=== PATIENT | male | born 1945 | race Caucasian/White ===

== ENCOUNTER 2020-01-03 10:48 | Outpatient (CLI) | payer MEDICARE, BC ==
[~2020-01-03 10:48] MED LIST: Iopamidol-370 76% 500 ML 1 ML ONE
--- NOTE | 2020-01-03 15:18 | CT ---
CT OF THE CHEST, ABDOMEN AND PELVIS WITH IV CONTRAST: 01/03/20 INDICATION: 74-year-old male with history of rectal bleeding and rectal cancer with history of colonoscopy indica ting presence of rectal cancer. COMPARISON: None. FINDINGS: CHEST: There is mild bilateral male gynecomastia. No suspicious pulmonary nodule is demonstrated. No pleural effusion is noted. There are postsurgical changes of a prior CABG. No enlarged lymph nodes are evide nt within the mediastinum, hilar or axillary regions. ABDOMEN: No suspicious hepatic lesion is evident. The pancreas, adrenal glands and spleen are normal appearing . The kidneys reveal no focal renal lesion. There are moderate calcifications involving the abdominal aorta. No pathologically enlarged lymph nod es are seen within the retroperitoneum or upper abdomen. No free fluid is identified. PELVIS: There is a circumferential region of wall thickening involving the mid rectum on image 114, series 2 which may correspond to the patient's known rectal cancer. There is a mildly prominent left perirecta l lymph node measuring 7 mm on image 110 of series 2. There is a 7 mm lymph node seen along the infer ior rectal vasculature on image 108 of series 2. There is a mildly prominent 6 mm lymph node seen cassandra ng the inferior mesenteric vasculature on image 105 of series 2. An additional mildly prominent lymph node is seen just anterior to the left psoas and left inferior mesenteric vessels measuring 7 mm on image 97 of series 2. No free fluid is evident. There are moderate calcifications involving the abdominopelvic vasculature. The bladder is within normal limits. There are bilateral fat containing inguinal hernias. There are scattered degenerative and osteoarthritic change. IMPRESSION: 1. Circumferential mass involving the mid rectum with mildly prominent left perirectal and infer ior rectal lymph nodes suspicious for lymph node spread of disease. 2. No evidence of distant metastatic disease to the chest and abdomen. 3. Other findings as above. POS:
== END 2020-01-03 10:49 | disposition home or self-care (01) ==
LOC: BICCT 10:48
PROVIDERS: ATTEND Internal Medicine Gastroenterology
DX: C20 Malignant neoplasm of rectum (principal); K62.89 Other specified diseases of anus and rectum; N62 Hypertrophy of breast; I70.0 Atherosclerosis of aorta; M19.90 Unspecified osteoarthritis, unspecified site; K40.20 Bilateral inguinal hernia, without obstruction or gangrene, not specified as recurrent; Z95.1 Presence of aortocoronary bypass graft
CPT/HCPCS: 71260; 74177; Q9967

== ENCOUNTER 2020-04-16 07:46 | Outpatient (CLI) | payer MEDICARE, BC, OTHER ==
[2020-04-16 14:30] LABS: #Eosinphils 1.2 thou/uL (0.0-0.7); #Lymphocytes 0.8 thou/uL (1.20-3.40); #Monocytes 0.7 thou/uL (0.11-0.59); %Basophils 0.4 % (0.0-1.0); %Eosinophils 15.3 % (0.0-10.0); %Monocytes 8.8 % (0.0-10.0); %Neutrophils 65.5 % (42.0-75.0); Hemoglobin 13.2 g/dL (14.0-18.0); Mean Corpuscular HGB CONC 32.8 g/dL (32.0-36.0); Mean Corpuscular Hemoglobin 32.1 pg (27.0-31.0); Mean Corpuscular Volume 97.8 fL (78.0-98.0); Mean Platelet Volume 7.3 fL (7.4-10.4); Platelet Count 272 thou/uL (130-400); RBC Distribution Width 16.8 % (11.5-14.5); Red Blood Cell (RBC) Count 4.13 mill/uL (4.70-6.10); White Blood Cell (WBC) Count 7.6 thou/uL (4.8-10.8)
[2020-04-16 14:44] LABS: Hemoglobin A1c 5.8 % (4.0-6.0)
[2020-04-16 14:59] LABS: Anion Gap 14 mmol/L (10-20); BUN (Urea Nitrogen) 39 mg/dL (8.4-25.7); Calc. Creatinine Clearance 0 mL/min (70-130); Calcium 9.4 mg/dL (7.8-10.44); Carbon Dioxide 22 mmol/L (23-31); Chloride 99 mmol/L (98-107); Estimated GFR-MDRD 64; Glucose 105 mg/dL (83-110); Potassium 4.2 mmol/L (3.5-5.1); Sodium 131 mmol/L (136-145)
[2020-04-17 13:43] LABS: SARS-CoV-2 MS2 Positive; SARS-CoV-2 N Gene Negative; SARS-CoV-2 S Gene Negative; SARS-CoV-2 by NAA Not Detected (NotDetected); SARS-CoV-2 orf1ab Negative
== END 2020-04-16 07:47 | disposition home or self-care (01) ==
LOC: LABBT 07:46
PROVIDERS: ATTEND Specialist
DX: Z01.818 Encounter for other preprocedural examination (principal); C20 Malignant neoplasm of rectum; Z20.828 Contact with and (suspected) exposure to other viral communicable diseases
CPT/HCPCS: 80048; 83036; 85025; 93005; U0003; 87635; 93010

== ENCOUNTER 2020-04-21 06:30 | Inpatient (IN) | payer MEDICARE, BC ==
[2020-04-16 09:41] VITALS: BMI 33.2
[2020-04-21] MEDS ORDERED: Fentanyl 100 MCG/2 ML VIAL ONE ×2 (06:39→07:15)
[2020-04-21] MEDS ORDERED: Midazolam HCl 2 mg/2 ml Vial ONE (06:39)
[2020-04-21] MEDS ORDERED: Lidocaine 1% w/Epinephrine 1:100K 20 ML VIAL ONE (06:54)
[2020-04-21] MEDS ORDERED: Gabapentin 300 MG CAP ONE (07:14)
[2020-04-21] MEDS ORDERED: Acetaminophen 500 MG TAB ONE (07:14)
[2020-04-21] MEDS ORDERED: Ketorolac Tromethamine 30 MG/ML VIAL ONE (07:14)
[2020-04-21] MEDS ORDERED: cefOXitin 2 GM in Sodium Chloride 0.9% 100 ML IVPB SCH (07:30)
[2020-04-21] MEDS ORDERED: cefOXitin Sodium/Dextrose,Iso 2 GM in Premix Bag 1 BAG IVPB SCH (07:45)
[2020-04-21] MEDS ORDERED: Dexamethasone 20 MG/5 ML VIAL ONE (10:00)
[2020-04-21] MEDS ORDERED: Ondansetron PF 4 MG/2 ML Vial ONE (10:00)
[2020-04-21] MEDS ORDERED: Glycopyrrolate 0.2 MG/ML 5 ML SYRINGE ONE (10:00)
[2020-04-21] MEDS ORDERED: Rocuronium Bromide 10 MG/ML (10ML VIAL) ONE (10:00)
[2020-04-21] MEDS ORDERED: EPHEDRINE 25 MG/5 ML SYRINGE ONE (10:00)
[2020-04-21] MEDS ORDERED: PHENYLEPHRINE-NS 100 MCG/ML 10 ML SYRINGE ONE (10:00)
[2020-04-21] MEDS ORDERED: Bupivacaine HCl 0.5%/Epinephrine 1:200,000/PF 30 ml Vial ONE (10:00)
[2020-04-21] MEDS ORDERED: Lidocaine 1% PF 5 ML VIAL ONE (10:00)
[2020-04-21] MEDS ORDERED: PROPOFOL 200 MG/20 ML VIAL ONE (10:00)
[2020-04-21] MEDS ORDERED: cefOXitin Sodium/Dextrose 2 GM/50 ML BAG ONE (10:30)
[2020-04-21] MEDS ORDERED: Promethazine HCl 25 MG/ML VIAL IM PRN ×2 (12:56→13:21)
[2020-04-21] MEDS ORDERED: Promethazine HCl 25 MG/ML VIAL SLOW IVP PRN (12:56)
[2020-04-21] MEDS ORDERED: Ondansetron HCl/PF 4 MG/2 ML Vial IVP PRN (12:56)
[2020-04-21] MEDS ORDERED: Ondansetron PF 4 MG/2 ML Vial IVP PRN (13:21)
[2020-04-21] MEDS ORDERED: hydrALAZINE 20 MG/ML VIAL SLOW IVP PRN (13:21)
[2020-04-21] MEDS ORDERED: Insulin Regular 300 UNITS/3 ML VIAL SC PRN (13:21)
[2020-04-21] MEDS ORDERED: Morphine 4 MG/ML VIAL SLOW IVP PRN (13:21)
[2020-04-21] MEDS ORDERED: Morphine 2 MG/ML VIAL SLOW IVP PRN (13:21)
[2020-04-21] MEDS: Atenolol 25 MG TAB PO SCH (15:27)
[2020-04-21] MEDS: Aspirin 81 mg Enteric Coated Tablet PO SCH (15:27)
[2020-04-21] MEDS: Triamterene/Hydrochlorothiazide 37.5 mg/25 mg Tablet PO SCH (15:28)
[2020-04-21] MEDS: FLUoxetine HCl 20 MG CAP PO SCH (21:10)
[2020-04-21] MEDS: Amitriptyline HCl 25 MG TAB PO SCH (21:10)
[2020-04-21] MEDS: Allopurinol 100 MG TAB PO SCH (21:10)
[2020-04-21] MEDS: Rosuvastatin 20 MG TAB PO SCH (21:10)
[2020-04-21] MEDS: Famotidine 20 MG TAB PO SCH (21:10)
[2020-04-21] MEDS: rOPINIRole HCl 0.5 MG TAB PO SCH (21:10)
[2020-04-21] MEDS: Enoxaparin Sodium 40 MG/0.4 ML SYRINGE SC SCH (21:10)
[2020-04-21] MEDS: metFORMIN 500 MG TAB PO SCH (21:10)
[2020-04-21] MEDS: Famotidine/PF 20 mg/2ml Vial SLOW IVP SCH (21:11)
[2020-04-21] MEDS: Sodium Chloride 0.9% 1,000 ML IV SCH ×2 (21:15→21:21)
[2020-04-21] MEDS: Ketorolac Tromethamine 30 MG/ML VIAL IVP SCH ×2 (21:18→23:08)
[2020-04-22] MEDS: Sodium Chloride 0.9% 1,000 ML IV SCH ×5 (05:58→23:58)
[2020-04-22] MEDS: Ketorolac Tromethamine 30 MG/ML VIAL IVP SCH ×4 (05:58→23:55)
[2020-04-22 06:33] LABS: Anion Gap 15 mmol/L (10-20); BUN (Urea Nitrogen) 21 mg/dL (8.4-25.7); Calc. Creatinine Clearance 107 mL/min (70-130); Calcium 8.2 mg/dL (7.8-10.44); Carbon Dioxide 17 mmol/L (23-31); Chloride 104 mmol/L (98-107); Estimated GFR-MDRD 78; Glucose 149 mg/dL (83-110); Potassium 4.9 mmol/L (3.5-5.1); Sodium 131 mmol/L (136-145)
--- NOTE | 2020-04-22 06:48 | PDOC.GSPN ---
Surgery Progress Note: Subj - Subjective Narrative: Mr. Pascual is a 74 year old male with a PMH of HTN and Type 2 diabetes who is POD #1 from lap low anterior colon resection for adenocarcinoma of the rectum. Patient did well overnight, with no new complaints. He denies any fever, chest pain, SOB, nausea, or vomiting. He reports 5/10 abdominal tenderness. The patient notes he has been able to stand, but has not been walking around much. The patient is tolerating a clear liquid diet. I/O: 1550 mL/1400 from Carpenter, 150 mL from ileostomy. His POC glucose levels have been elevated (175-200 overnight), 143 this morning. He received a dose of Metformin yesterday. Patient notes his glucose levels usually run around 120 at home. Surgery Progress Note: Obj - Vital signs Vital signs: Vital Signs - Most Recent Temp Pulse Resp BP Pulse Ox 98.6 F 72 17 146/65 H 98 04/22/20 04:24 04/22/20 04:24 04/22/20 04:24 04/22/20 04:24 04/22/20 04:24 - Physical Exam General: no distress Cardiovascular: regular rate and rhythm Respiratory: clear to auscultation, normal respiratory effort Abdomen: soft, nondistended, positive bowel sounds, appropriately tender ( patient reports pain level 5/10) Wound: ostomy/colostomy (Ileostomy intact, mucosa pink, 150 mL enteric output overnight) Surgery Progress Note: Results - Labs Result Diagrams: 04/23/20 05:13 04/23/20 05:13 Lab results: Laboratory Results - last 24 hr 04/21/20 04/22/20 04/22/20 21:03 05:45 06:01 Sodium 131 L Potassium 4.9 Chloride 104 Carbon Dioxide 17 L Anion Gap 15 BUN 21 Creatinine 0.95 Estimated GFR (MDRD) 78 Glucose 149 H POC Glucose 182 H 143 H Calcium 8.2 Surgery Progress Note: A/P - Problem (1) Rectal cancer Current Visit: Yes Code(s): C20 - MALIGNANT NEOPLASM OF RECTUM Status: Acute (2) Type 2 diabetes mellitus Current Visit: Yes Status: Chronic - Plan Plan: Mr. Pascual is a 74 year old male with HTN and type 2 diabetes who is s/p LAR with temporary diverting ileostomy for rectal cancer. He is doing well with no complaints. Plan: 1. Continue pain management as needed 2. Advance to full liquid diet as tolerated 3. VTE: SCDs, encourage ambulation 4. POC glucose testing at bedside, sliding scale Humulin ordered as needed for glucose >150 5. Strict I/Os. 6. Patient appears stable, consider discharge if no new complaints MD note: Pt doing well. contin diet. prob home tomorrow.
[2020-04-22] MEDS: Famotidine/PF 20 mg/2ml Vial SLOW IVP SCH ×2 (08:34→21:42)
[2020-04-22] MEDS: Triamterene/Hydrochlorothiazide 37.5 mg/25 mg Tablet PO SCH (08:34)
[2020-04-22] MEDS: Losartan 25 MG TAB PO SCH (08:34)
[2020-04-22] MEDS: metFORMIN 500 MG TAB PO SCH ×2 (08:34→17:39)
[2020-04-22] MEDS: Amlodipine 10 MG TAB PO SCH (08:35)
[2020-04-22] MEDS: Aspirin 81 mg Enteric Coated Tablet PO SCH (08:35)
[2020-04-22] MEDS: Potassium Chloride 10 MEQ TAB PO SCH (08:35)
[2020-04-22] MEDS: Atenolol 25 MG TAB PO SCH (08:35)
[2020-04-22] MEDS: Famotidine 20 MG TAB PO SCH ×2 (08:36→21:42)
[2020-04-22 08:39] LABS: #Lymphocytes 0.4 thou/uL (1.20-3.40); #Monocytes 0.8 thou/uL (0.11-0.59); #Neutrophils 8.6 thou/uL (1.40-6.50); %Eosinophils 0.2 % (0.0-10.0); %Lymphocytes 4.3 % (21.0-51.0); %Monocytes 7.7 % (0.0-10.0); %Neutrophils 87.8 % (42.0-75.0); Hemoglobin 10.6 g/dL (14.0-18.0); Mean Corpuscular HGB CONC 32.1 g/dL (32.0-36.0); Mean Corpuscular Hemoglobin 31.8 pg (27.0-31.0); Mean Corpuscular Volume 99.1 fL (78.0-98.0); Mean Platelet Volume 6.9 fL (7.4-10.4); Platelet Count 217 thou/uL (130-400); RBC Distribution Width 16.3 % (11.5-14.5); Red Blood Cell (RBC) Count 3.32 mill/uL (4.70-6.10); White Blood Cell (WBC) Count 9.8 thou/uL (4.8-10.8)
[2020-04-22] MEDS ORDERED: HYDROcodone/Acetaminophen 7.5/325 mg Tablet PO PRN (08:49)
[2020-04-22] MEDS: HYDROcodone/Acetaminophen 7.5/325 mg Tablet PO PRN (19:14)
[2020-04-22] MEDS: Enoxaparin Sodium 40 MG/0.4 ML SYRINGE SC SCH (21:42)
[2020-04-22] MEDS: FLUoxetine HCl 20 MG CAP PO SCH (21:42)
[2020-04-22] MEDS: rOPINIRole HCl 0.5 MG TAB PO SCH (21:42)
[2020-04-22] MEDS: Rosuvastatin 20 MG TAB PO SCH (21:42)
[2020-04-22] MEDS: Allopurinol 100 MG TAB PO SCH (21:42)
[2020-04-22] MEDS: Amitriptyline HCl 25 MG TAB PO SCH (21:42)
--- NOTE | 2020-04-23 02:46 | OP ---
DATE OF PROCEDURE: 04/21/2020 PREOPERATIVE DIAGNOSIS: Distal rectal cancer. POSTOPERATIVE DIAGNOSIS: Distal rectal cancer. PROCEDURE PERFORMED: Ultra-low anterior resection of rectal cancer with proximal diverting ileostomy. ANESTHESIA: General endotracheal. INDICATIONS FOR PROCEDURE: The patient is a 74-year-old white male. He was diagnosed with a rectal cancer. He has completed a course of neoadjuvant chemotherapy and radiation. He presents at this time for definitive resection. The patient's cancer is felt to be somewhere between 4 and 8 cm from the anal verge. The patient was significantly obese at the onset of his care and at my request, he has lost over 20 pounds in preparation for his surgery to help make an adequately low resection possible. He has undergone outpatient mechanical and antibiotic bowel prep. DESCRIPTION OF OPERATION: Informed consent was obtained. The patient was taken to the operating room, where general endotracheal anesthesia was obtained with the patient in the supine position. The patient had a TAP block placed by Anesthesia preoperatively. He was placed into dorsal lithotomy using Yellofin stirrups. Carpenter catheter was placed, abdomen was prepped with ChloraPrep and draped in sterile fashion. Local anesthetic was infiltrated, and 5-mm supraumbilical incision was created through which a Veress needle was passed into the peritoneal cavity and pneumoperitoneum was established using carbon dioxide up to a pressure of 15 mmHg. A 5 mm trocar port was passed through the same incision, and laparoscopic camera was passed this port. Under direct vision, a 12-mm port was placed in the right lower quadrant at the site of a planned ileostomy. A site was selected for the colon extraction port. An 8 cm left lower quadrant oblique incision was created, and muscle-splitting technique was used to gain access into the abdominal cavity. The Gurinder wound retractor followed by the Kristi was placed. Attention was turned to the colon. With the patient in significant Trendelenburg position, the lateral attachments of the sigmoid colon were mobilized with LigaSure. The white line of Toldt was taken down in an ascending fashion towards, but not including the splenic flexure. Attention was returned to the lower abdomen. I began my dissection on the right side of the rectum. Peritoneum was incised, and peritoneal incision was carried down to the cul-de-sac of the peritoneal reflection. There was a sulcus into which the rectum dive down into the lower pelvis. The peritoneum was incised over the anterior aspect of this. Attention was returned proximally, and dissection was carried through the mesentery to the left side of the rectum in the postmesenteric plane so as to affect total mesorectal excision. I was able to identify the left ureter and reflected it posteriorly. It was kept free from harm throughout the case. The rectal mobilization was carefully carried into the depths of the pelvis and through the retroperitoneum down just about . This was a lengthy dissection due to the fairly narrow pelvis. Meticulous hemostasis was maintained. At the point that I felt that I had mobilized the rectum far enough, I performed a rectal examination while checking the colon from within the abdomen and was able to palpate the malignancy digitally and discern that I had in fact dissected beyond the rectal malignancy to a point that the rectum could be safely divided. The Cadott stapler using a 60 mm load was used to divide the rectum beyond the palpable area of malignancy. Because of the difficult angle within the depth of the pelvis, this required 4 fires of the stapler to get a complete transection. When it was completely divided, the rectum was reflected back up into the abdominal cavity. I identified a segment of descending colon that would easily reach down into the pelvis for a tension-free anastomosis. This was marked with the LigaSure, and the colon was delivered extracorporeally through the wound retractor. The mesentery was cleared from the area that had been dissected previously up to the level of the planned anastomosis. This was carried out using the LigaSure device. The superior rectal artery was divided at the takeoff from the inferior mesenteric artery. Using segregated instruments, an enterotomy was created and the colon was sized. A 31 mm EEA stapler was selected, and the anvil of the stapler was advanced through the colotomy several centimeters proximally and brought out antimesenteric. The colotomy was then resected in continuity with the excised malignancy with a final firing of the Cadott stapler. The specimen was passed off the field as a specimen. Gloves were changed. Instruments were passed off the field and the operation was continued. The post was cleansed with Betadine, and a pursestring suture of 2-0 Prolene was placed. The colon was dropped back down to the abdominal cavity. From below, I used the EEA sizers to dilate the anus and then passed the 31 mm stapler through the anus up to the staple line. The spike was passed through the staple line and mated to the anvil. These two segments were approximated and anastomosed by firing the stapler. Again, this was entirely tension-free. The anastomosis was checked to make sure it was airtight by insufflating using the proctoscope. There was no evidence of air leak. The area was irrigated, and all irrigant was aspirated. The abdominal cavity was inspected one final time. The liver was inspected both visually and with palpation. It was found to be no evidence of metastatic disease to liver. The ileocecal valve was identified and at 30 cm proximally, the small bowel was grasped. Laparoscopy was terminated. The port site at the right lower quadrant was enlarged, and muscle-splitting was used in typical ileostomy creation. The graft segment of bowel was passed through the ileostomy opening, and a red rubber catheter was passed through a mesenteric defect to hold the bowel out of abdomen. The proximal end of the bowel was marked. All laparoscopic instrumentation was passed off the field. The abdominal wall was cleansed with saline. Gowns and gloves were changed in preparation for closure. The closing tray was utilized. Attention was turned to the left lower quadrant incision. The fascia was closed in 2 layers using running suture of #1 PDS. Additional local anesthetic was infiltrated in the interfascial plane, and the subcutaneous layer was irrigated with 2 L of saline. The remainder of the wound was closed with 3-0 and 4-0 Monocryl. The other laparoscopic port site was closed with 4-0 Monocryl and Dermabond was placed externally. Attention was then returned to the ileostomy. The ileum was opened transversely. The proximal end was matured with eversion sutures followed by full-thickness sutures, and the distal aspect was matured without eversion. The red rubber catheter was trimmed to appropriate length and secured to skin with 3-0 nylon suture. The ileostomy appliance was applied in the usual fashion. There were no complications. Blood loss was estimated about 50 mL. The patient tolerated the procedure well and was taken to recovery room in stable condition. Job ID: [id number] [facility]
[2020-04-23] MEDS: Ketorolac Tromethamine 30 MG/ML VIAL IVP SCH ×2 (05:10→11:58)
[2020-04-23 05:21] LABS: #Eosinphils 0.3 thou/uL (0.0-0.7); #Lymphocytes 0.5 thou/uL (1.20-3.40); #Monocytes 0.6 thou/uL (0.11-0.59); #Neutrophils 4.8 thou/uL (1.40-6.50); %Basophils 0.1 % (0.0-1.0); %Eosinophils 5.3 % (0.0-10.0); %Lymphocytes 8.2 % (21.0-51.0); %Monocytes 10.2 % (0.0-10.0); %Neutrophils 76.2 % (42.0-75.0); Hemoglobin 10.2 g/dL (14.0-18.0); Mean Corpuscular HGB CONC 32.4 g/dL (32.0-36.0); Mean Corpuscular Hemoglobin 32.2 pg (27.0-31.0); Mean Corpuscular Volume 99.4 fL (78.0-98.0); Mean Platelet Volume 6.5 fL (7.4-10.4); Platelet Count 189 thou/uL (130-400); RBC Distribution Width 16.3 % (11.5-14.5); Red Blood Cell (RBC) Count 3.17 mill/uL (4.70-6.10); White Blood Cell (WBC) Count 6.3 thou/uL (4.8-10.8)
[2020-04-23 05:41] LABS: Anion Gap 9 mmol/L (10-20); BUN (Urea Nitrogen) 20 mg/dL (8.4-25.7); Calc. Creatinine Clearance 108 mL/min (70-130); Calcium 8.2 mg/dL (7.8-10.44); Carbon Dioxide 23 mmol/L (23-31); Chloride 103 mmol/L (98-107); Estimated GFR-MDRD 79; Glucose 99 mg/dL (83-110); Potassium 4.4 mmol/L (3.5-5.1); Sodium 131 mmol/L (136-145)
[2020-04-23] MEDS: Sodium Chloride 0.9% 1,000 ML IV SCH (06:16)
--- NOTE | 2020-04-23 06:24 | PDOC.GSPN ---
Surgery Progress Note: Subj - Subjective Narrative: Mr. Pascual is a 74-year-old male with a history of HTN and T2DM and POD #2 after low anterior resection of rectal cancer with proximal diverting colostomy. He reports feeling well with no overnight events. Associated symptoms include a minor cough since yesterday. His pain is appropriately controlled with Toradol 15mg last given @ 05:10 and he feels taken care of. He is tolerating full liquid diet. No BM per rectum, no flatus and belching. I/O at 600 IV NS/200 urine + 725 stool this morning (per colostomy). He was able to ambulate yesterday and earlier this morning. Carpenter catheter was removed yesterday and patient is able to urinate. Denies nausea, vomiting, fever, SOB. Surgery Progress Note: Obj - Vital signs Vital signs: Vital Signs - Most Recent Temp Pulse Resp BP Pulse Ox 97.7 F 72 17 145/65 H 96 04/23/20 03:54 04/23/20 03:54 04/23/20 03:54 04/23/20 03:54 04/23/20 03:54 - Physical Exam General: no distress (laying recumbent, says it's the best position to prevent pain and pressure at surgical site.) Cardiovascular: regular rate and rhythm Respiratory: clear to auscultation Abdomen: soft, non tender, nondistended, positive bowel sounds (in all 4 quadrants) Wound: healing well (incision sites are intact; no erythema, swelling or drainage.) Surgery Progress Note: Results - Labs Result Diagrams: 04/23/20 05:13 04/23/20 05:13 Lab results: Laboratory Results - last 24 hr 04/22/20 04/23/20 04/23/20 20:41 05:13 05:13 WBC 6.3 RBC 3.17 L Hgb 10.2 L Hct 31.5 L MCV 99.4 H MCH 32.2 H MCHC 32.4 RDW 16.3 H Plt Count 189 MPV 6.5 L Neutrophils % 76.2 H Lymphocytes % 8.2 L Monocytes % 10.2 H Eosinophils % 5.3 Basophils % 0.1 Neutrophils # 4.8 Lymphocytes # 0.5 L Monocytes # 0.6 H Eosinophils # 0.3 Basophils # 0.0 Sodium 131 L Potassium 4.4 Chloride 103 Carbon Dioxide 23 Anion Gap 9 L BUN 20 Creatinine 0.94 Estimated GFR (MDRD) 79 Glucose 99 POC Glucose 129 H Calcium 8.2 04/23/20 05:20 WBC RBC Hgb Hct MCV MCH MCHC RDW Plt Count MPV Neutrophils % Lymphocytes % Monocytes % Eosinophils % Basophils % Neutrophils # Lymphocytes # Monocytes # Eosinophils # Basophils # Sodium Potassium Chloride Carbon Dioxide Anion Gap BUN Creatinine Estimated GFR (MDRD) Glucose POC Glucose 118 H Calcium - Hgb/Hct trending downward from 10.6/32.9 22 hours ago to 10.2/31.5 this morning. - Hyponatremia noted at 131 - Elevated POC glucose at 118, trending down from day before with 129 @ bedtime & 24-hr max at 175 Surgery Progress Note: A/P - Problem (1) Rectal cancer Current Visit: Yes Code(s): C20 - MALIGNANT NEOPLASM OF RECTUM Status: Acute (2) Type 2 diabetes mellitus Current Visit: Yes Status: Chronic - Plan Plan: - patient is stable - tolerating full liquid, consider advancing to regular - continue to monitor POC glucose, responding to metformin tx, use sliding scale Humulin glucose > 150 - systolic HTN this morning @ 145/65, monitor BP - consider repeat CBC and CMP - pain is appropriately controlled with toradol 15 mg - SCDs not in use, continued ambulation strongly advised - consider d/c MD note: Doing well. stable after surgery. Home today after HHN arranged [facility]
[2020-04-23] MEDS: Losartan 25 MG TAB PO SCH (07:57)
[2020-04-23] MEDS: Aspirin 81 mg Enteric Coated Tablet PO SCH (07:57)
[2020-04-23] MEDS: Atenolol 25 MG TAB PO SCH (07:57)
[2020-04-23] MEDS: Amlodipine 10 MG TAB PO SCH (07:58)
[2020-04-23] MEDS: metFORMIN 500 MG TAB PO SCH (07:58)
[2020-04-23] MEDS: Potassium Chloride 10 MEQ TAB PO SCH (07:58)
[2020-04-23] MEDS: Triamterene/Hydrochlorothiazide 37.5 mg/25 mg Tablet PO SCH (07:59)
[2020-04-23] MEDS: Famotidine 20 MG TAB PO SCH (07:59)
[2020-04-23] MEDS: Famotidine/PF 20 mg/2ml Vial SLOW IVP SCH (10:10)
[2020-04-23] MEDS: HYDROcodone/Acetaminophen 7.5/325 mg Tablet PO PRN (11:57)
[2020-04-23 16:19] VITALS: BP 132/67; TEMP 97.8
--- NOTE | 2020-04-24 09:34 | PDOC.FMACP ---
Advance Care Planning - Problem (1) Palliative care encounter Status: Acute Code(s): Z51.5 - ENCOUNTER FOR PALLIATIVE CARE (2) Rectal cancer Status: Acute Code(s): C20 - MALIGNANT NEOPLASM OF RECTUM - Note Participants: patient, palliative care Summary: Palliative Care addressed Advanced Care Planning, opportunity to decline. The diagnosis, prognosis and goals of care were discussed. Appropriate forms and documentation to accomplish the goals of care were discussed. All questions were answered. Mr Pascual elected to complete the MPOA, original and copies provided to patient as well as copy placed on the chart. He confirmed he has Directive to Physician completed and at home, requested for copies to be given to the hospital for his medical records so his wishes will be known. The Palliative Care Team will be engaged to assist with completion of any outstanding forms that are needed. Please also refer to Palliative Care notes in note section. Time Spent (mins): 15
== END 2020-04-23 16:20 | disposition home health service (06) | DRG 330 ==
LOC: SDC 06:30 → SURG A 13:21
PROVIDERS: ADMIT Specialist; ATTEND Specialist
PROC: 0DBP4ZZ Excision of Rectum, Percutaneous Endoscopic Approach (ICD-10-PCS; principal; 2020-04-21)
PROC: 0DBN4ZZ Excision of Sigmoid Colon, Percutaneous Endoscopic Approach (ICD-10-PCS; 2020-04-21)
PROC: 0D1B4Z4 Bypass Ileum to Cutaneous, Percutaneous Endoscopic Approach (ICD-10-PCS; 2020-04-21)
DX: C20 Malignant neoplasm of rectum (principal); E87.1 Hypo-osmolality and hyponatremia; G47.33 Obstructive sleep apnea (adult) (pediatric); I25.10 Atherosclerotic heart disease of native coronary artery without angina pectoris; E78.5 Hyperlipidemia, unspecified; I48.91 Unspecified atrial fibrillation; F32.9 Major depressive disorder, single episode, unspecified; I12.9 Hypertensive chronic kidney disease with stage 1 through stage 4 chronic kidney disease, or unspecified chronic kidney disease; E11.22 Type 2 diabetes mellitus with diabetic chronic kidney disease; G25.81 Restless legs syndrome; N18.3 Chronic kidney disease, stage 3 (moderate); M10.9 Gout, unspecified; Z96.653 Presence of artificial knee joint, bilateral; K21.9 Gastro-esophageal reflux disease without esophagitis; Z79.82 Long term (current) use of aspirin; Z95.1 Presence of aortocoronary bypass graft; Z87.891 Personal history of nicotine dependence; Z92.21 Personal history of antineoplastic chemotherapy; Z92.3 Personal history of irradiation
CPT/HCPCS: 36415; 36416; 80048; 85025; 88305; 88309; 88313; 88342; J0670; J0694; J1100; J1650; J1885; J2250; J2405; J2704; J3010; J3490

== ENCOUNTER 2020-05-14 07:30 | Outpatient (CLI) | payer MEDICARE, BC, OTHER ==
--- NOTE | 2020-05-14 12:27 | RAD ---
RADIOGRAPH CHEST 2 VIEWS: DATE: 05/14/2020 HISTORY: 74-year-old male for preoperative clearance FINDINGS: There is no airspace density, pulmonary edema, pleural effusion, pneumothorax, or cardiomegaly. There are sternotomy wires. There is a left atrial appendage closure device. IMPRESSION: No acute cardiopulmonary findings.
[2020-05-14 16:37] LABS: #Eosinphils 1.1 thou/uL (0.0-0.7); #Lymphocytes 0.9 thou/uL (1.20-3.40); #Monocytes 0.7 thou/uL (0.11-0.59); #Neutrophils 6.7 thou/uL (1.40-6.50); %Basophils 0.2 % (0.0-1.0); %Eosinophils 11.4 % (0.0-10.0); %Lymphocytes 9.4 % (21.0-51.0); Hemoglobin 12.3 g/dL (14.0-18.0); Mean Corpuscular Hemoglobin 32.6 pg (27.0-31.0); Mean Corpuscular Volume 98.8 fL (78.0-98.0); Mean Platelet Volume 6.9 fL (7.4-10.4); Platelet Count 331 thou/uL (130-400); RBC Distribution Width 14.8 % (11.5-14.5); Red Blood Cell (RBC) Count 3.78 mill/uL (4.70-6.10); White Blood Cell (WBC) Count 9.3 thou/uL (4.8-10.8)
[2020-05-14 17:01] LABS: Anion Gap 16 mmol/L (10-20); BUN (Urea Nitrogen) 50 mg/dL (8.4-25.7); Calc. Creatinine Clearance 0 mL/min (70-130); Carbon Dioxide 23 mmol/L (23-31); Chloride 100 mmol/L (98-107); Estimated GFR-MDRD 65; Glucose 107 mg/dL (83-110); Potassium 5.2 mmol/L (3.5-5.1); Sodium 134 mmol/L (136-145)
[2020-05-15 09:44] LABS: Hemoglobin A1c 6.4 % (4.0-6.0)
[2020-05-15 12:00] LABS: SARS-CoV-2 MS2 Positive; SARS-CoV-2 N Gene Negative; SARS-CoV-2 S Gene Negative; SARS-CoV-2 by NAA Not Detected (NotDetected); SARS-CoV-2 orf1ab Negative
--- NOTE | 2020-05-17 13:06 | EKG ---
Test Reason : Blood Pressure : / mmHG Vent. Rate : 059 BPM Atrial Rate : 059 BPM P-R Int : 290 ms QRS Dur : 154 ms QT Int : 446 ms P-R-T Axes : 065 -56 066 degrees QTc Int : 441 ms Sinus bradycardia with 1st degree A-V block Left axis deviation Right bundle branch block Abnormal ECG When compared with ECG of 16-APR-2020 11:22, No significant change was found Confirmed by DEEPA ROBERSON MD ([id number]) on 05/17/2020 1:05:49 PM Referred By: ADELAIDE Confirmed By:DEEPA ROBERSON MD
== END 2020-05-14 07:31 | disposition home or self-care (01) ==
LOC: LABBT 07:30 → SCSRAD 07:31
PROVIDERS: ATTEND Specialist
DX: Z01.818 Encounter for other preprocedural examination (principal); Z20.828 Contact with and (suspected) exposure to other viral communicable diseases; C20 Malignant neoplasm of rectum
CPT/HCPCS: 71046; 80048; 83036; 85025; 87635; 93005; 93010; U0003

== ENCOUNTER 2020-06-18 07:34 | Outpatient (CLI) | payer MEDICARE, BC, OTHER ==
[2020-06-18 14:53] LABS: #Eosinphils 0.3 10x3/uL (0.0-0.5); #Monocytes 0.7 10x3/uL (0.0-1.1); #Neutrophils 2.8 10x3/uL (1.5-8.4); %Basophils 0.6 % (0.0-2.0); %Lymphocytes 16.5 % (18.0-47.0); %Monocytes 15.6 % (0.0-10.0); %Neutrophils 59.9 % (40.0-75.0); Hemoglobin 10.2 g/dL (14.0-18.0); Mean Corpuscular HGB CONC 32.5 G/DL (32.0-36.0); Mean Corpuscular Hemoglobin 31.2 PG (27.0-33.0); Mean Platelet Volume 8.7 fl (7.4-10.4); Platelet Count 213 10x3/uL (130-400); RBC Distribution Width 13.4 % (11.5-14.5); Red Blood Cell (RBC) Count 3.27 10x6/uL (4.40-5.80); White Blood Cell (WBC) Count 4.7 10x3/uL (4.5-11.0)
[2020-06-18 16:47] LABS: Anion Gap 21 mmol/L (10-20); BUN (Urea Nitrogen) 36 mg/dL (8.4-25.7); Calc. Creatinine Clearance 0 mL/min (70-130); Calcium 9.4 mg/dL (7.8-10.44); Carbon Dioxide 16 mmol/L (23-31); Chloride 102 mmol/L (98-107); Estimated GFR-MDRD 67; Glucose 100 mg/dL (83-110); Potassium 4.5 mmol/L (3.5-5.1); Sodium 134 mmol/L (136-145)
--- NOTE | 2020-06-18 16:52 | RAD ---
XR Chest Pa Lat STANDARD HISTORY: Preoperative evaluation COMPARISON: 05/14/2020 FINDINGS: The heart size is normal. Changes of median sternotomy are again seen. Right-sided Port-A-C ath has been placed with tip in the projection of the SVC. The lungs are well expanded without focal areas of consolidation, pneumothorax or pleural effusions. There is degenerative change in the spine. IMPRESSION: No radiographic evidence of acute cardiopulmonary process.
[2020-06-19 11:54] LABS: SARS-CoV-2 MS2 Positive; SARS-CoV-2 N Gene Negative; SARS-CoV-2 S Gene Negative; SARS-CoV-2 by NAA Not Detected (NotDetected); SARS-CoV-2 orf1ab Negative
== END 2020-06-18 07:35 | disposition home or self-care (01) ==
LOC: LABBT 07:34
PROVIDERS: ATTEND Specialist
DX: Z01.818 Encounter for other preprocedural examination (principal); C20 Malignant neoplasm of rectum; Z20.828 Contact with and (suspected) exposure to other viral communicable diseases
CPT/HCPCS: 71046; 80048; 85025; 93005; U0003; 87635; 93010

== ENCOUNTER 2020-06-18 13:15 | Inpatient (IN) | payer MEDICARE, BC ==
[2020-06-23] MEDS ORDERED: Fentanyl 100 MCG/2 ML VIAL ONE ×5 (06:27→17:44)
[2020-06-23] MEDS ORDERED: Acetaminophen 500 MG TAB ONE (06:28)
[2020-06-23] MEDS ORDERED: Ketorolac Tromethamine 30 MG/ML VIAL ONE (06:28)
[2020-06-23] MEDS ORDERED: cefOXitin Sodium/Dextrose 2 GM/50 ML BAG ONE (06:28)
[2020-06-23] MEDS ORDERED: Midazolam HCl 2 mg/2 ml Vial ONE (10:47)
[2020-06-23] MEDS ORDERED: PROPOFOL 200 MG/20 ML VIAL ONE (13:05)
[2020-06-23] MEDS ORDERED: Bupivacaine HCl 0.5%/Epinephrine 1:200,000/PF 30 ml Vial ONE (13:05)
[2020-06-23] MEDS ORDERED: Lidocaine 1% PF 5 ML VIAL ONE (13:05)
[2020-06-23] MEDS ORDERED: Ondansetron PF 4 MG/2 ML Vial ONE (13:05)
[2020-06-23] MEDS ORDERED: Rocuronium Bromide 10 MG/ML (10ML VIAL) ONE (13:05)
[2020-06-23] MEDS ORDERED: Lidocaine 1% w/Epinephrine 1:100K 20 ML VIAL ONE (14:08)
[2020-06-23] MEDS ORDERED: Bupivacaine/Epinephrine 0.25% 30 ML VIAL ONE (14:08)
[2020-06-23] MEDS ORDERED: SUGAMMADEX SODIUM 200 MG/2 ML VIAL ONE (14:14)
[2020-06-23] MEDS ORDERED: Insulin Regular 300 UNITS/3 ML VIAL SC PRN (14:27)
[2020-06-23] MEDS ORDERED: Dextrose 5% in Water 1,000 ML IV PRN (14:27)
[2020-06-23] MEDS ORDERED: Dextrose 50% Abboject 50 ML SYRINGE SLOW IVP PRN (14:27)
[2020-06-23] MEDS ORDERED: HYDROmorphone 2 MG/ML VIAL SLOW IVP PRN (16:25)
[2020-06-23] MEDS ORDERED: Promethazine HCl 25 MG/ML VIAL IM PRN ×2 (16:25→18:57)
[2020-06-23] MEDS ORDERED: PACU-Morphine 4MG/ML VIAL SLOW IVP PRN (16:25)
[2020-06-23] MEDS ORDERED: Ketorolac Tromethamine 30 MG/ML VIAL IVP PRN (16:25)
[2020-06-23] MEDS ORDERED: Ondansetron HCl/PF 4 MG/2 ML Vial IVP PRN (16:25)
[2020-06-23] MEDS ORDERED: Morphine Sulfate 2 MG/ML SYRINGE SLOW IVP PRN (16:25)
[2020-06-23] MEDS ORDERED: Promethazine HCl 25 MG/ML VIAL SLOW IVP PRN (16:25)
[2020-06-23] MEDS ORDERED: Meperidine HCl/PF 25 MG/ML VIAL SLOW IVP PRN (16:25)
[2020-06-23] MEDS ORDERED: hydrALAZINE 20 MG/ML VIAL SLOW IVP PRN (18:57)
[2020-06-23] MEDS ORDERED: Morphine 4 MG/ML VIAL SLOW IVP PRN (18:57)
[2020-06-23] MEDS ORDERED: Ondansetron PF 4 MG/2 ML Vial IVP PRN (18:57)
[2020-06-23] MEDS ORDERED: Morphine 2 MG/ML VIAL SLOW IVP PRN (18:57)
[2020-06-23 19:50] VITALS: BMI 29.5
[2020-06-23] MEDS: HumaLOG 300 UNITS/3 ML VIAL SC SCH (20:59)
[2020-06-23] MEDS: Insulin Glargine 26 UNITS in Pre-Filled Syringe 1 EACH SC SCH (21:00)
[2020-06-23] MEDS ORDERED: Non-Formulary Item 1 EACH (Insulin Glargine,Hum.Rec.Anlog [Toujeo Max Solostar] 300 UNIT/ SQ SCH (21:00)
[2020-06-23] MEDS: FLUoxetine HCl 20 MG CAP PO SCH (21:06)
[2020-06-23] MEDS: Allopurinol 100 MG TAB PO SCH (21:06)
[2020-06-23] MEDS: Amitriptyline HCl 25 MG TAB PO SCH (21:06)
[2020-06-23] MEDS: Rosuvastatin 20 MG TAB PO SCH (21:06)
[2020-06-23] MEDS: Ketorolac Tromethamine 30 MG/ML VIAL IVP SCH (21:07)
[2020-06-23] MEDS: D5 1/2 NS w/20 mEq KCL 1,000 ML IV SCH (21:07)
[2020-06-23] MEDS: Famotidine/PF 20 mg/2ml Vial SLOW IVP SCH (21:08)
[2020-06-23] MEDS: rOPINIRole HCl 0.5 MG TAB PO SCH (21:08)
[2020-06-23] MEDS: Famotidine 20 MG TAB PO SCH (21:08)
[2020-06-23] MEDS: Enoxaparin Sodium 40 MG/0.4 ML SYRINGE SC SCH (21:08)
[2020-06-24] MEDS: Ketorolac Tromethamine 30 MG/ML VIAL IVP SCH ×4 (03:11→21:15)
[2020-06-24] MEDS: D5 1/2 NS w/20 mEq KCL 1,000 ML IV SCH ×2 (03:13→15:05)
[2020-06-24 05:54] LABS: #Lymphocytes 0.4 thou/uL (1.20-3.40); #Monocytes 0.7 thou/uL (0.11-0.59); #Neutrophils 5.2 thou/uL (1.40-6.50); %Eosinophils 0.6 % (0.0-10.0); %Lymphocytes 5.9 % (21.0-51.0); %Monocytes 10.5 % (0.0-10.0); Hemoglobin 10.6 g/dL (14.0-18.0); Mean Corpuscular Hemoglobin 32.3 pg (27.0-31.0); Mean Corpuscular Volume 94.9 fL (78.0-98.0); Mean Platelet Volume 6.3 fL (7.4-10.4); Platelet Count 161 thou/uL (130-400); RBC Distribution Width 13.6 % (11.5-14.5); Red Blood Cell (RBC) Count 3.28 mill/uL (4.70-6.10); White Blood Cell (WBC) Count 6.2 thou/uL (4.8-10.8)
[2020-06-24 06:21] LABS: Anion Gap 10 mmol/L (10-20); BUN (Urea Nitrogen) 19 mg/dL (8.4-25.7); Calc. Creatinine Clearance 106 mL/min (70-130); Calcium 8.8 mg/dL (7.8-10.44); Carbon Dioxide 24 mmol/L (23-31); Chloride 102 mmol/L (98-107); Estimated GFR-MDRD 80; Glucose 147 mg/dL (83-110); Potassium 4.4 mmol/L (3.5-5.1); Sodium 132 mmol/L (136-145)
[2020-06-24] MEDS: metFORMIN 500 MG TAB PO SCH ×2 (08:35→16:41)
[2020-06-24] MEDS: Atenolol 25 MG TAB PO SCH (08:35)
[2020-06-24] MEDS: Tamsulosin HCl 0.4 MG CAP PO SCH (08:35)
[2020-06-24] MEDS: Losartan 25 MG TAB PO SCH (08:35)
[2020-06-24] MEDS: Aspirin 81 mg Enteric Coated Tablet PO SCH (08:36)
[2020-06-24] MEDS: Famotidine 20 MG TAB PO SCH ×2 (08:36→21:15)
[2020-06-24] MEDS: Amlodipine 10 MG TAB PO SCH (08:36)
[2020-06-24] MEDS ORDERED: FLU VACC QS2020-21(65YR UP)/PF 240 MCG/0.7 ML SYRINGE IM ONE (09:00)
[2020-06-24] MEDS ORDERED: HYDROcodone/Acetaminophen 7.5/325 mg Tablet PO PRN ×2 (14:22)
[2020-06-24] MEDS: Famotidine/PF 20 mg/2ml Vial SLOW IVP SCH ×2 (15:00→21:17)
[2020-06-24] MEDS ORDERED: D5 1/2 NS w/20 mEq KCL 1,000 ML IV SCH (18:00)
[2020-06-24] MEDS: Rosuvastatin 20 MG TAB PO SCH (21:15)
[2020-06-24] MEDS: rOPINIRole HCl 0.5 MG TAB PO SCH (21:15)
[2020-06-24] MEDS: FLUoxetine HCl 20 MG CAP PO SCH (21:16)
[2020-06-24] MEDS: Allopurinol 100 MG TAB PO SCH (21:16)
[2020-06-24] MEDS: Amitriptyline HCl 25 MG TAB PO SCH (21:16)
[2020-06-24] MEDS: Enoxaparin Sodium 40 MG/0.4 ML SYRINGE SC SCH (21:17)
--- NOTE | 2020-06-24 21:22 | PRG ---
DATE OF SERVICE: SUBJECTIVE: Mr. Pascual is postoperative day #1 following ileostomy reversal. He was stable overnight and notes minimal discomfort. He does note some concern regarding intermittent low volume diarrhea that he has some difficult to control thus far. He is tolerating clear liquids yesterday and thus far today and had no nausea or vomiting. He is voiding well. PHYSICAL EXAMINATION: VITAL SIGNS: Temperature is 98.0, pulse 70, and blood pressure 111/64. LUNGS: Clear to auscultation. CARDIAC: Regular rate and rhythm. ABDOMEN: Soft, nontender, and nondistended. Dressing is intact in right lower quadrant. Bowel sounds are present and normoactive. LABORATORY DATA: CBC shows a white blood cell count of 6.2 with a hemoglobin of 10.6. Of note, his most recent hemoglobin on June 18 was 10.2. Chemistries; his electrolytes were unremarkable. His blood sugar has been well controlled overnight. ASSESSMENT: Patient is doing well following ileostomy closure. I will decrease his IV fluid rate down to 50 mL/h and advance him up to a full liquid diet today. I have encouraged him to continue to ambulate. I anticipate advancing into a soft diet and discharge him home tomorrow. I discussed all this with the patient. He is happy with his progress. Job ID: [id number]
[2020-06-24] MEDS: Insulin Glargine 26 UNITS in Pre-Filled Syringe 1 EACH SC SCH (21:24)
[2020-06-24] MEDS: HumaLOG 300 UNITS/3 ML VIAL SC SCH (21:24)
--- NOTE | 2020-06-25 01:12 | OP ---
DATE OF PROCEDURE: 06/23/2020 PREOPERATIVE DIAGNOSES: Unnecessary ileostomy, recent history of rectal cancer. POSTOPERATIVE DIAGNOSES: Unnecessary ileostomy, recent history of rectal cancer. OPERATION PERFORMED: Ileostomy closure with short-segment small-bowel resection. ANESTHESIA: General endotracheal. INDICATIONS: Patient is a 74-year-old white male. He recently underwent a very low anterior resection for a distal rectal cancer. A temporary ileostomy was created at that time in a looped fashion. He has recently had a barium enema, which confirmed that the anastomosis was patent without leak. He is taken to the operating room at this time for ileostomy reversal. DESCRIPTION OF OPERATION: Informed consent was obtained. Patient was taken to the operating room, where general endotracheal anesthesia was obtained, patient in supine position. The ostomy was closed in a transverse fashion using a running locking suture of 0 silk. Abdomen is then prepped with ChloraPrep and draped in sterile fashion. Local anesthetic was infiltrated using 0.25% Marcaine with epinephrine. Patient had also undergone a TAP block placement earlier in the day. Elliptical incision was created transversely to encompass the sutures used to close the ostomy. Dissection was carried through skin and subcutaneous tissue. Dissection was carried around the bowel, which was quickly encountered down to the fascia. I performed meticulous dissection of the fascial defect, dissecting away all the adhesions between the bowel and the abdominal wall with no evidence of intraabdominal adhesions beyond the ostomy. I was able to withdraw several centimeters of the ileum through the abdominal wall in both directions. I selected a site for anastomosis, proximal and distal to the ileostomy. A double stapled anastomosis created between these sites using a TERE 75 stapler. The intervening mesentery was taken down between clamps and 2-0 silk ties. Of note, before the bowel was opened and dissected, segregated instruments were utilized with towels around the operative site. Gloves were changed. The bowel was closed and instruments were passed off the field. The anastomosis was buttressed with several interrupted sutures of 3-0 silk. The mesenteric defect was closed with two [id number] sutures of 3-0 silk. The bowel was then returned to the abdominal cavity. The fascia was closed in 2 layers with running suture of #1 PDS. The posterior fascia and rectus muscle were closed with one layer and the anterior rectus fascia with a second layer. The abdominal wound was copiously irrigated. Additional local anesthetic was infiltrated. The wound was closed in layers with 3-0 Vicryl and skin monica. Telfa gauze adamaris were passed between the skin down to the abdominal fascia. Dry gauze dress was placed externally. There were no complications. Patient tolerated the procedure well, was taken to recovery room in stable condition. Job ID: [id number]
[2020-06-25] MEDS: Ketorolac Tromethamine 30 MG/ML VIAL IVP SCH ×2 (01:52→09:10)
--- NOTE | 2020-06-25 06:31 | PDOC.GSPN ---
Surgery Progress Note: Subj - Subjective Narrative: Mr. Pascual is a 74 year old male POD 2 ileostomy reversal with short segment small bowel resection. He was walking around the room at the time of the visit this morning. He noted no overnight events and did not have any pain this morning. He continues to complain of watery diarrhea several times a day over the past two days and has started using adult diapers to prevent accidents. He also noted that he urinated much less yesterday than the day before. He has been ambulating frequently and was able to tolerate his full liquid diet well yesterday. He denies any shortness of breath, bloating, chest pain, fever, chills, and dizziness. Surgery Progress Note: Obj - Vital signs Vital signs: Vital Signs - Most Recent Temp Pulse Resp BP Pulse Ox 98 F 71 16 136/68 99 06/25/20 03:06 06/25/20 03:06 06/25/20 03:06 06/25/20 03:06 06/25/20 03:06 - Physical Exam General: no distress Cardiovascular: regular rate and rhythm Respiratory: clear to auscultation, normal respiratory effort, breath sounds present Abdomen: soft, non tender, nondistended, positive bowel sounds Wound: other (dressing intact in RLQ with blood covering the lower half of the dressing) Surgery Progress Note: Results - Labs Result Diagrams: 06/24/20 04:57 06/24/20 04:57 Lab results: Laboratory Results - last 12 hr 06/24/20 06/25/20 20:55 05:54 POC Glucose 84 106 H Surgery Progress Note: A/P - Plan Plan: Mr. Pascual is POD 2 ileostomy reversal and is doing well overall. 1. Advance diet to soft foods 2. Continue IV fluids at 50 ml/hr given his report of reduced urine output 3. Change dressing 4. Prophylaxis: encouraged ambulation and incentive spirometry 5. Discharge home later today
[2020-06-25] MEDS: metFORMIN 500 MG TAB PO SCH (09:12)
[2020-06-25] MEDS: Atenolol 25 MG TAB PO SCH (09:12)
[2020-06-25] MEDS: Tamsulosin HCl 0.4 MG CAP PO SCH (09:13)
[2020-06-25] MEDS: Amlodipine 10 MG TAB PO SCH (09:13)
[2020-06-25] MEDS: Losartan 25 MG TAB PO SCH (09:13)
[2020-06-25] MEDS: Aspirin 81 mg Enteric Coated Tablet PO SCH (09:13)
[2020-06-25] MEDS: Famotidine 20 MG TAB PO SCH (09:13)
[2020-06-25] MEDS: Famotidine/PF 20 mg/2ml Vial SLOW IVP SCH (09:14)
[2020-06-25 11:29] VITALS: BP 121/65; TEMP 98.5
--- NOTE | 2020-06-26 07:04 | PQF ---
CLINICAL DOCUMENTATION CLARIFICATION FORM: Dear : Ankush Cardozo Date / Time: 06/26/2020 Please exercise your independent, professional judgment in responding to the clarification form. Clinical indicators are provided on the bottom of this form for your review Please check appropriate box(es): [ ] Associated Diagnosis: Hyponatremia [ x ] Insignificant lab value [ ] Other diagnosis [ ] Unable to determine In addition, please specify: Present on Admission (POA): [ ] Yes [ x ] No [ ] Unable to determine To be completed by CDI/Coding staff for physician review: Present Clinical Indicators - Signs / Symptoms / Labs Results and Location in Medical Record [ x ] Sodium is 132 (L) on 06/24 Laboratory [ x ] Continues to complain of watery diarrhea several times a day over the past 2 days Progress note 06/25 by Ankush Cardozo MD Present Risk Factors Results and Location in Medical Record [ x ] Ileostomy reversal procedure OP report 06/23 by Ankush Cardozo MD [ x ] Continuous watery diarrhea Progress note 06/25 by Ankush Cardozo MD Present Treatments Results and Location in Medical Record [ x ] IV fluids 06/24 to 06/25 Medications CDS/Process Assistant Signature: [id number] Phone #: Date/Time: 06/26/2020 This is a permanent part of the Medical Record [facility]
--- NOTE | 2020-06-26 13:42 | DIS ---
DATE OF ADMISSION: 06/23/2020 DATE OF DISCHARGE: 06/25/2020 ADMISSION DIAGNOSES: Unnecessary ileostomy, history of rectal cancer. DISCHARGE DIAGNOSES: Unnecessary ileostomy, history of rectal cancer. PROCEDURES PERFORMED: Ileostomy closure with short-segment bowel resection. ADMISSION HISTORY: The patient is a 74-year-old white male, who was diagnosed previously with rectal cancer. He underwent ultra-low anterior resection with proximal diverting ileostomy. He has done well following his cancer surgery and is taken back to the operating room at this time for ileostomy closure. Recent barium enema showed no evidence of anastomotic leak. HOSPITAL COURSE: The patient underwent uneventful surgery on the day of presentation. The ileostomy was closed. By the following day, he was tolerating liquids and already had bowel function. By postoperative day #2, his diet was advanced. He still had bowel function. His pain was well controlled and his incision appeared to be healing nicely. He was discharged home on postoperative day #2 and asked to follow up with myself in 2 weeks for staple removal. Job ID: [id number]
[2020-06-28] MEDS ORDERED: Dulaglutide [Trulicity] 1.5 MG/0.5 ML Pen.Injctr SC SCH (09:00)
== END 2020-06-25 13:51 | disposition home or self-care (01) | DRG 331 ==
LOC: SURG A 06-23 06:00 → SURG B 06-23 18:54
PROVIDERS: ADMIT Specialist; ATTEND Specialist
PROC: 0DSB0ZZ Reposition Ileum, Open Approach (ICD-10-PCS; principal; 2020-06-23)
PROC: 0DB80ZZ Excision of Small Intestine, Open Approach (ICD-10-PCS; 2020-06-23)
DX: Z43.2 Encounter for attention to ileostomy (principal); Z96.653 Presence of artificial knee joint, bilateral; Z85.048 Personal history of other malignant neoplasm of rectum, rectosigmoid junction, and anus; Z95.1 Presence of aortocoronary bypass graft; Z90.49 Acquired absence of other specified parts of digestive tract
CPT/HCPCS: 36415; 36416; 80048; 85025; 88304; J0694; J1650; J1815; J1885; J2250; J2405; J2704; J3010; J3480; S0028

== ENCOUNTER 2020-11-17 07:32 | Outpatient (CLI) | payer MEDICARE, BC | END 2020-11-17 07:33 | disposition home or self-care (01) | LOC: BICCT 07:32 | PROVIDERS: ATTEND Internal Medicine Hematology & Oncology | DX: C20 Malignant neoplasm of rectum (principal); Z98.890 Other specified postprocedural states | CPT/HCPCS: 71260; 74177 ==

== ENCOUNTER 2020-11-26 09:08 | Outpatient (CLI) | payer MEDICARE, BC ==
[2020-11-26 11:21] LABS: #Eosinphils 0.4 10x3/uL (0.0-0.5); #Monocytes 0.7 10x3/uL (0.0-1.1); #Neutrophils 4.3 10x3/uL (1.5-8.4); %Basophils 0.6 % (0.0-2.0); %Eosinophils 7.1 % (0.0-6.0); %Lymphocytes 10.5 % (18.0-47.0); %Monocytes 11.8 % (0.0-10.0); %Neutrophils 69.7 % (40.0-75.0); Hemoglobin 11.9 g/dL (13.5-17.5); Mean Corpuscular HGB CONC 32.2 g/dL (32.0-36.0); Mean Corpuscular Volume 92.9 fl (81.2-95.1); Mean Platelet Volume 8.4 fl (7.4-10.4); Platelet Count 264 10x3/uL (150-450); RBC Distribution Width 15.8 % (11.5-14.5); Red Blood Cell (RBC) Count 3.97 10x6/uL (4.32-5.72); White Blood Cell (WBC) Count 6.2 10x3/uL (3.5-10.5)
[2020-11-26 11:27] LABS: Bilirubin Neg (Negative); Blood, Urine Negative (Negative); Clarity Clear (Clear); Glucose, Urine (Dipstick) 250 mg/dL (Negative); Ketone, Urine Negative (Negative); Leukocyte Negative (Negative); Nitrite Negative (Negative); Protein, Urine (Dipstick) Negative (Neg-Trace); Specific Gravity, Urine 1.005 (1.002-1.036); Urobilinogen Normal mg/dL (Less than 2); pH, Urine 6.5 (5.0-9.0)
[2020-11-26 11:38] LABS: INR-International Normal Ratio 0.9; PTT 25.2 sec (22.0-33.0); Prothrombin Time 10.2 sec (9.5-12.1)
[2020-11-26 11:40] LABS: Bacteria/HPF None Seen HPF (None Seen); RBC/HPF 0-3 HPF (0-3); Squamous Epithelial 0-3 HPF (0-3); WBC/HPF 0-3 HPF (0-3)
[2020-11-26 16:53] LABS: Anion Gap 12 mmol/L (10-20); BUN (Urea Nitrogen) 34 mg/dL (8.4-25.7); Calc. Creatinine Clearance 0 mL/min (70-130); Calcium 9.3 mg/dL (7.8-10.44); Carbon Dioxide 27 mmol/L (23-31); Chloride 102 mmol/L (98-107); Glucose 167 mg/dL (83-110); Potassium 4.5 mmol/L (3.5-5.1); Sodium 136 mmol/L (136-145)
[2020-11-26 17:44] LABS: SARS-CoV-2 PCR by NAA Not Detected (NotDetected)
== END 2020-11-26 09:09 | disposition home or self-care (01) ==
LOC: LABBT 09:08
PROVIDERS: ATTEND Urology
DX: Z01.818 Encounter for other preprocedural examination (principal); C20 Malignant neoplasm of rectum; R33.9 Retention of urine, unspecified; N40.1 Benign prostatic hyperplasia with lower urinary tract symptoms; F32.5 Major depressive disorder, single episode, in full remission; E11.22 Type 2 diabetes mellitus with diabetic chronic kidney disease; N18.2 Chronic kidney disease, stage 2 (mild); E11.21 Type 2 diabetes mellitus with diabetic nephropathy; Z20.822 Contact with and (suspected) exposure to COVID-19
CPT/HCPCS: 71046; 80048; 81001; 85025; 85610; 85730; 87086; 93005; U0003; U0005; 87635; 93010

== ENCOUNTER 2020-11-27 06:19 | Day surgery (SDC) | payer MEDICARE, BC ==
[2020-11-26 11:40] VITALS: BMI 33.7
[2020-11-27] MEDS ORDERED: Levofloxacin 500 mg/D5W 100 ml Premix Bag ONE (07:24)
[2020-11-27 07:28] LABS: Anion Gap 16 mmol/L (10-20); BUN (Urea Nitrogen) 36 mg/dL (8.4-25.7); Calc. Creatinine Clearance 117 mL/min (70-130); Calcium 9.3 mg/dL (7.8-10.44); Carbon Dioxide 21 mmol/L (23-31); Chloride 102 mmol/L (98-107); Glucose 156 mg/dL (83-110); Potassium 4.1 mmol/L (3.5-5.1); Sodium 135 mmol/L (136-145)
[2020-11-27] MEDS ORDERED: Midazolam HCl 2 mg/2 ml Vial ONE (08:26)
[2020-11-27] MEDS ORDERED: Fentanyl 100 MCG/2 ML VIAL ONE (08:26)
[2020-11-27] MEDS ORDERED: B & O ONE (08:29)
[2020-11-27] MEDS ORDERED: ePHEDrine Sulfate 50 MG/10 ML VIAL ONE (08:38)
[2020-11-27] MEDS ORDERED: PHENYLEPHRINE-NS 100 MCG/ML 10 ML SYRINGE ONE (08:38)
[2020-11-27] MEDS ORDERED: PROPOFOL 200 MG/20 ML VIAL ONE (08:38)
[2020-11-27] MEDS ORDERED: Ondansetron PF 4 MG/2 ML Vial ONE (08:38)
== END 2020-11-27 11:59 | disposition home or self-care (01) ==
LOC: SDC 06:19
PROVIDERS: ATTEND Urology
PROC: 0T7D8DZ Dilation of Urethra with Intraluminal Device, Via Natural or Artificial Opening Endoscopic (ICD-10-PCS; principal; 2020-11-27)
DX: N40.1 Benign prostatic hyperplasia with lower urinary tract symptoms (principal); N13.8 Other obstructive and reflux uropathy; R33.8 Other retention of urine; R35.1 Nocturia; R39.14 Feeling of incomplete bladder emptying; G47.33 Obstructive sleep apnea (adult) (pediatric); I25.10 Atherosclerotic heart disease of native coronary artery without angina pectoris; E78.5 Hyperlipidemia, unspecified; I48.91 Unspecified atrial fibrillation; E11.21 Type 2 diabetes mellitus with diabetic nephropathy; M10.9 Gout, unspecified; G25.81 Restless legs syndrome; I12.9 Hypertensive chronic kidney disease with stage 1 through stage 4 chronic kidney disease, or unspecified chronic kidney disease; E11.22 Type 2 diabetes mellitus with diabetic chronic kidney disease; N18.30 Chronic kidney disease, stage 3 unspecified; Z85.038 Personal history of other malignant neoplasm of large intestine; Z87.891 Personal history of nicotine dependence; Z79.4 Long term (current) use of insulin; Z79.82 Long term (current) use of aspirin; Z79.899 Other long term (current) drug therapy; Z95.1 Presence of aortocoronary bypass graft
CPT/HCPCS: 80048; 82962; C9740; L8699; 36415; 36416; J1956; J2250; J2405; J2704; J3010

== ENCOUNTER 2020-12-01 06:13 | Day surgery (SDC) | payer MEDICARE, BC ==
[2020-11-26 11:54] VITALS: BMI 33.7
[2020-12-01] MEDS ORDERED: Ketorolac Tromethamine 30 MG/ML VIAL ONE (06:40)
[2020-12-01] MEDS ORDERED: Acetaminophen 500 MG TAB ONE (06:40)
[2020-12-01] MEDS ORDERED: Lidocaine 1% w/Epinephrine 1:100K 20 ML VIAL ONE (06:55)
[2020-12-01] MEDS ORDERED: Bupivacaine 0.25% HCL 30 ML VIAL ONE (06:55)
[2020-12-01] MEDS ORDERED: Fentanyl 250 MCG/5 ML VIAL ONE (07:11)
[2020-12-01] MEDS ORDERED: Rocuronium Bromide 10 MG/ML (10ML VIAL) ONE (07:44)
[2020-12-01] MEDS ORDERED: Dexamethasone 20 MG/5 ML VIAL ONE (07:44)
[2020-12-01] MEDS ORDERED: Glycopyrrolate 0.2 MG/ML 5 ML SYRINGE ONE (07:44)
[2020-12-01] MEDS ORDERED: Lidocaine 1% PF 5 ML VIAL ONE (07:44)
[2020-12-01] MEDS ORDERED: Ondansetron PF 4 MG/2 ML Vial ONE (07:44)
[2020-12-01] MEDS ORDERED: PROPOFOL 200 MG/20 ML VIAL ONE (07:44)
[2020-12-01] MEDS ORDERED: Fentanyl 100 MCG/2 ML VIAL ONE (10:34)
[2020-12-01] MEDS ORDERED: HYDROcodone/Acetaminophen 5/325 mg Tablet ONE ×2 (11:40→11:41)
[2020-12-01] MEDS ORDERED: Morphine 2 MG/ML VIAL ONE (12:26)
== END 2020-12-01 14:08 | disposition home or self-care (01) ==
LOC: SDC 06:13
PROVIDERS: ATTEND Specialist
PROC: 0WUF4JZ Supplement Abdominal Wall with Synthetic Substitute, Percutaneous Endoscopic Approach (ICD-10-PCS; principal; 2020-12-01)
PROC: 0WUF4JZ Supplement Abdominal Wall with Synthetic Substitute, Percutaneous Endoscopic Approach (ICD-10-PCS; 2020-12-01)
DX: K43.2 Incisional hernia without obstruction or gangrene (principal); K42.9 Umbilical hernia without obstruction or gangrene; E11.21 Type 2 diabetes mellitus with diabetic nephropathy; G47.33 Obstructive sleep apnea (adult) (pediatric); I25.10 Atherosclerotic heart disease of native coronary artery without angina pectoris; E78.5 Hyperlipidemia, unspecified; M10.9 Gout, unspecified; K21.9 Gastro-esophageal reflux disease without esophagitis; I12.9 Hypertensive chronic kidney disease with stage 1 through stage 4 chronic kidney disease, or unspecified chronic kidney disease; E11.22 Type 2 diabetes mellitus with diabetic chronic kidney disease; N18.30 Chronic kidney disease, stage 3 unspecified; Z87.891 Personal history of nicotine dependence; Z79.4 Long term (current) use of insulin; Z79.82 Long term (current) use of aspirin; Z79.899 Other long term (current) drug therapy; Z90.49 Acquired absence of other specified parts of digestive tract; Z95.1 Presence of aortocoronary bypass graft
CPT/HCPCS: 49652; 49654; 82962; J2270; 36416; J0690; J1100; J1885; J2405; J2704; J3010; S0020

== ENCOUNTER 2023-04-20 18:00 | Outpatient (CLI) | payer MEDICARE, BC | END 2023-04-20 18:01 | disposition home or self-care (01) | LOC: SLEEPLAB 18:00 | PROVIDERS: ATTEND Internal Medicine | DX: G47.33 Obstructive sleep apnea (adult) (pediatric) (principal); F32.A Depression, unspecified; E11.9 Type 2 diabetes mellitus without complications; R06.83 Snoring; G47.00 Insomnia, unspecified; I10 Essential (primary) hypertension | CPT/HCPCS: 95800 ==